=== PATIENT | male | born 1950 | race Caucasian/White ===

== ENCOUNTER 2022-07-05 17:34 | Inpatient (IN) | payer OTHER ==
[2022-07-05 18:34] VITALS: BMI 22.1
[2022-07-05] MEDS ORDERED: BISMUTH SUBSALICYLATE 524 MG/30 ML PO PRN (19:26)
[2022-07-05] MEDS ORDERED: DICYCLOMINE HCL 10 MG CAPSULE PO PRN (19:26)
[2022-07-05] MEDS ORDERED: POLYETHYLENE GLYCOL (HEALTHYLAX) 3350 17 GM PACKET PO PRN (19:26)
[2022-07-05] MEDS ORDERED: MAG HYDROX/AL HYDROX/SIMETH 30 ML UNIT-DOSE CUP PO PRN (19:26)
[2022-07-05] MEDS ORDERED: IBUPROFEN 400 MG TABLET (FP) PO PRN (19:26)
[2022-07-05] MEDS ORDERED: IBUPROFEN 600 MG TABLET (FP) PO PRN (19:26)
[2022-07-05] MEDS ORDERED: BENZOCAINE/MENTHOL (CHLORASEPTIC ) LOZENGE MM PRN (19:26)
[2022-07-05] MEDS ORDERED: BENZONATATE 200 MG CAPSULE PO PRN (19:26)
[2022-07-05] MEDS ORDERED: P-EPHED 60MG/TRIPROLIDI 2.5MG TABLET PO PRN (19:26)
[2022-07-05] MEDS ORDERED: ACETAMINOPHEN 325 MG TABLET (FP) PO PRN (19:26)
[2022-07-05] MEDS ORDERED: guaiFENesin 600 MG TABLET.ER (FP) PO PRN (19:26)
[2022-07-05] MEDS ORDERED: MELATONIN 5 MG TABLETS PO PRN (19:26)
[2022-07-05] MEDS ORDERED: ONDANSETRON *ODT* 4 MG TABLET SL PRN (19:26)
[2022-07-05] MEDS ORDERED: LOPERAMIDE HCL 2 MG CAPSULE PO PRN (19:26)
[2022-07-05] MEDS ORDERED: MAGNESIUM HYDROX 2400MG/30ML ORAL SUSPENSION 30 ML CUP PO PRN (19:26)
[2022-07-05] MEDS ORDERED: chlordiazePOXIDE HCL 25 MG CAPSULE PO PRN (19:28)
[2022-07-05] MEDS ORDERED: chlordiazePOXIDE HCL 25 MG CAPSULE PO ONE (19:28)
[2022-07-05] MEDS ORDERED: chlordiazePOXIDE HCL 25 MG CAPSULE ONE (19:43)
[2022-07-05] MEDS ORDERED: PATIENT'S OWN MEDICATION (NON-FORMULARY) (Topiramate [Topiramate] 50 MG Tablet) PO SCH (22:00)
[2022-07-05] MEDS: THIAMINE HCL 100 MG TABLET (FP) PO SCH (22:44)
[2022-07-06] MEDS: chlordiazePOXIDE HCL 25 MG CAPSULE PO SCH ×4 (00:11→18:52)
[2022-07-06] MEDS ORDERED: TOPIRAMATE 25 MG TABLET PO ONE (01:20)
[2022-07-06] MEDS ORDERED: FAMOTIDINE 20 MG TABLET PO SCH (10:00)
[2022-07-06] MEDS ORDERED: amLODIPine BESYLATE 5 MG TABLET (FP) PO SCH (10:00)
[2022-07-06] MEDS ORDERED: PRENATAL VITAMINS W/ FOLIC ACID TABLET (FP) PO SCH (10:00)
[2022-07-06 12:08] LABS: HEMATOCRIT 20.5 % (35.4-49); MCH 31.5 pg (25.7-33.7); MCHC 33.5 g/dl (32.0-35.9); MEAN CELL VOLUME 94.2 fl (80-96); MEAN PLT VOLUME 7.3 fl (7.5-11.1); PLATELET COUNT 37 10^3/uL (134-434); RBC 2.18 M/mm3 (4.00-5.60); RDW 16.2 % (11.9-15.9)
[2022-07-06 12:12] LABS: HEMOGLOBIN 6.9 GM/dL (11.7-16.9)
[2022-07-06 12:13] LABS: WHITE BLOOD COUNT 1.5 K/mm3 (4.0-10.0)
[2022-07-06 12:42] LABS: ALBUMIN 3.2 g/dl (3.4-5.0); BLOOD UREA NITROGEN 19.2 mg/dL (7-18); CALCIUM 8.7 mg/dL (8.5-10.1)
[2022-07-06 12:46] LABS: CREATININE 0.8 mg/dL (0.55-1.3)
[2022-07-06 12:48] LABS: BILIRUBIN,TOTAL 0.9 mg/dL (0.2-1); TOT PROT 6.2 g/dl (6.4-8.2)
[2022-07-06] MEDS: TOPIRAMATE 25 MG TABLET PO SCH ×2 (13:57→18:51)
[2022-07-06 15:22] VITALS: RESP 18
[2022-07-06 17:17] VITALS: BP 121/83; PULSE 108; TEMP 97.7
[2022-07-07] MEDS: TOPIRAMATE 25 MG TABLET PO SCH (00:27)
[2022-07-07] MEDS: THIAMINE HCL 100 MG TABLET (FP) PO SCH (00:29)
[2022-07-07] MEDS: chlordiazePOXIDE HCL 25 MG CAPSULE PO SCH (00:30)
[2022-07-07] MEDS ORDERED: chlordiazePOXIDE HCL 25 MG CAPSULE PO SCH (05:00)
[2022-07-08] MEDS ORDERED: chlordiazePOXIDE HCL 10 MG CAPSULE PO PRN
[2022-07-08] MEDS ORDERED: chlordiazePOXIDE HCL 10 MG CAPSULE PO SCH (05:00)
[2022-07-09] MEDS ORDERED: chlordiazePOXIDE HCL 10 MG CAPSULE PO SCH (05:00)
[2022-07-10] MEDS ORDERED: chlordiazePOXIDE HCL 10 MG CAPSULE PO ONE (05:00)
== END 2022-07-07 03:55 | disposition short-term general hospital (02) | DRG 897 ==
LOC: YASAS 17:34 → Y6N 21:01
PROVIDERS: ADMIT Allergy & Immunology; ATTEND Surgery
PROC: HZ2ZZZZ Detoxification Services for Substance Abuse Treatment (ICD-10-PCS; principal; 2022-07-05)
DX: F10.230 Alcohol dependence with withdrawal, uncomplicated (principal); D61.818 Other pancytopenia; K92.2 Gastrointestinal hemorrhage, unspecified; F10.280 Alcohol dependence with alcohol-induced anxiety disorder; F10.282 Alcohol dependence with alcohol-induced sleep disorder; I10 Essential (primary) hypertension; K21.9 Gastro-esophageal reflux disease without esophagitis; E78.5 Hyperlipidemia, unspecified; Z87.891 Personal history of nicotine dependence
CPT/HCPCS: 36415; 80053; 85027; 86780; C9803-CS; U0003; U0005

== ENCOUNTER 2022-07-06 17:04 | Inpatient (IN) | payer OTHER ==
[2022-07-06] MEDS ORDERED: PANTOPRAZOLE SODIUM 40 MG VIAL IVPUSH ONE (17:58)
[2022-07-06] MEDS ORDERED: LORazepam 2 MG/ML SDV VIAL IVPUSH ONE ×2 (18:02→19:10)
[2022-07-06] MEDS ORDERED: PANTOPRAZOLE SODIUM 40 MG VIAL ONE (18:13)
[2022-07-06] MEDS ORDERED: FOLIC ACID INJECTION - 1 MG, THIAMINE HCL 100 MG, MULTIVIT INJECTION ADULT 10 ML in SOD... IVPB ONE (18:42)
[2022-07-06 18:52] LABS: BASO % 1.3 % (0-2.0); EOS % 2.7 % (0-4.5); HEMATOCRIT 22.9 % (35.4-49); HEMOGLOBIN 7.5 GM/dL (11.7-16.9); LYMPH % 23.6 % (8-40); MCHC 32.8 g/dl (32.0-35.9); MEAN CELL VOLUME 94.4 fl (80-96); MEAN PLT VOLUME 7.1 fl (7.5-11.1); MONO % 10.5 % (3.8-10.2); NEUT % 61.9 % (42.8-82.8); PLATELET COUNT 44 10^3/uL (134-434); RBC 2.42 M/mm3 (4.00-5.60); WHITE BLOOD COUNT 2.2 K/mm3 (4.0-10.0)
[2022-07-06 18:59] LABS: INR 1.07 (0.83-1.09); PROTHROMBIN TIME (PATIENT) 12.4 SEC (9.7-13.0)
[2022-07-06 19:01] LABS: ACTIVATED PTT 28.5 SECONDS (25.2-36.5)
[2022-07-06 19:13] LABS: ALBUMIN 3.6 g/dl (3.4-5.0); BLOOD UREA NITROGEN 17.9 mg/dL (7-18); CALCIUM 9.5 mg/dL (8.5-10.1)
[2022-07-06 19:16] LABS: CREATININE 0.9 mg/dL (0.55-1.3)
[2022-07-06 19:17] LABS: BILIRUBIN,TOTAL 0.8 mg/dL (0.2-1); TOT PROT 7.3 g/dl (6.4-8.2)
[2022-07-06] MEDS ORDERED: diazePAM CARPU-JECT 10 MG/2 ML DISP.SYRIN IVPUSH ONE ×2 (20:40→21:13)
[2022-07-06] MEDS ORDERED: diazePAM CARPU-JECT 10 MG/2 ML DISP.SYRIN ONE ×2 (20:40→21:18)
[2022-07-06] MEDS ORDERED: LACTATED RINGERS SOLUTION 1,000 ML/1,000 ML INFUS.BAG IV SCH (23:45)
[2022-07-07] MEDS ORDERED: diazePAM CARPU-JECT 10 MG/2 ML DISP.SYRIN IVPUSH PRN ×2 (00:03→14:08)
[2022-07-07] MEDS: LACTATED RINGERS SOLUTION 1,000 ML/1,000 ML INFUS.BAG IV SCH (00:46)
[2022-07-07 03:17] LABS: HEMATOCRIT 16.5 % (35.4-49); MCH 30.7 pg (25.7-33.7); MCHC 32.4 g/dl (32.0-35.9); MEAN CELL VOLUME 94.6 fl (80-96); MEAN PLT VOLUME 6.5 fl (7.5-11.1); PLATELET COUNT 39 10^3/uL (134-434); RBC 1.74 M/mm3 (4.00-5.60); RDW 16.6 % (11.9-15.9)
[2022-07-07 03:26] LABS: HEMOGLOBIN 5.4 GM/dL (11.7-16.9); WHITE BLOOD COUNT 1.6 K/mm3 (4.0-10.0)
[2022-07-07 04:13] LABS: ANISOCYTOSIS 2+; MACROCYTOSIS 0
[2022-07-07] MEDS: THIAMINE HCL 200 MG/2 ML VIAL IVPB SCH ×3 (06:52→21:47)
[2022-07-07] MEDS ORDERED: diazePAM CARPU-JECT 10 MG/2 ML DISP.SYRIN IVPUSH ONE ×4 (08:59→14:04)
[2022-07-07] MEDS: MUPIROCIN 2% TOPICAL OINTMENT FOR DECOLONIZATION NS SCH ×2 (09:40→21:46)
[2022-07-07] MEDS ORDERED: FOLIC ACID 5 MG/1 ML IVPB SCH (10:00)
[2022-07-07] MEDS ORDERED: PANTOPRAZOLE SODIUM 40 MG VIAL IVPUSH SCH (10:00)
[2022-07-07] MEDS ORDERED: FOLIC ACID 1 MG TABLET (FP) PO SCH (10:00)
[2022-07-07] MEDS: CEFTRIAXONE 1 GM in DEXTROSE 5%-WATER - 50 ML IVPB SCH (12:54)
[2022-07-07] MEDS: OCTREOTIDE ACETATE 200 MCG, OCTREOTIDE ACETATE 1,000 MCG in DEXTROSE 5%-WATER - 496 ML IVPB SCH (13:27)
[2022-07-07] MEDS: PANTOPRAZOLE SODIUM 160 MG in SODIUM CHLORIDE 290 ML IVPB SCH (13:28)
[2022-07-07] MEDS ORDERED: OCTREOTIDE ACETATE 50 MCG/1 ML - 1 ML VIAL IVPUSH ONE (14:05)
[2022-07-07] MEDS: LORazepam 2 MG/ML SDV VIAL IVPUSH PRN ×2 (14:19→17:16)
[2022-07-07 17:03] LABS: BASO % 0.8 % (0-2.0); EOS % 3.2 % (0-4.5); HEMATOCRIT 33.9 % (35.4-49); HEMOGLOBIN 11.3 GM/dL (11.7-16.9); LYMPH % 12.8 % (8-40); MCH 29.3 pg (25.7-33.7); MCHC 33.4 g/dl (32.0-35.9); MEAN CELL VOLUME 87.8 fl (80-96); MEAN PLT VOLUME 6.5 fl (7.5-11.1); MONO % 12.5 % (3.8-10.2); NEUT % 70.7 % (42.8-82.8); PLATELET COUNT 63 10^3/uL (134-434); RBC 3.86 M/mm3 (4.00-5.60); RDW 18.1 % (11.9-15.9); WHITE BLOOD COUNT 3.8 K/mm3 (4.0-10.0)
[2022-07-07 17:13] LABS: INR 1.1 (0.83-1.09); PROTHROMBIN TIME (PATIENT) 12.8 SEC (9.7-13.0)
[2022-07-07 17:16] LABS: ACTIVATED PTT 27.1 SECONDS (25.2-36.5)
[2022-07-07 17:23] LABS: ALBUMIN 3.3 g/dl (3.4-5.0); BLOOD UREA NITROGEN 9.6 mg/dL (7-18); CALCIUM 8.5 mg/dL (8.5-10.1)
[2022-07-07 17:24] LABS: MAGNESIUM 1.6 mg/dL (1.8-2.4)
[2022-07-07 17:25] LABS: PHOSPHOROUS 3.9 mg/dL (2.5-4.9)
[2022-07-07 17:27] LABS: CREATININE 0.8 mg/dL (0.55-1.3)
[2022-07-07 17:29] LABS: BILIRUBIN,TOTAL 1.4 mg/dL (0.2-1); TOT PROT 6.7 g/dl (6.4-8.2)
[2022-07-07] MEDS ORDERED: MAGNESIUM 2GM/50ML STERILE WATER IVPB IVPB ONE (18:18)
[2022-07-07] MEDS: KCL 10 MEQ IVPB 10 MEQ/100 ML INFUS.BAG IVPB SCH ×2 (20:10→21:06)
[2022-07-07 20:53] LABS: BASO % 0.7 % (0-2.0); EOS % 3.9 % (0-4.5); HEMATOCRIT 33.5 % (35.4-49); HEMOGLOBIN 11.3 GM/dL (11.7-16.9); LYMPH % 14.9 % (8-40); MCH 29.6 pg (25.7-33.7); MCHC 33.9 g/dl (32.0-35.9); MEAN CELL VOLUME 87.3 fl (80-96); MEAN PLT VOLUME 6.7 fl (7.5-11.1); MONO % 10.6 % (3.8-10.2); NEUT % 69.9 % (42.8-82.8); PLATELET COUNT 73 10^3/uL (134-434); RBC 3.84 M/mm3 (4.00-5.60); RDW 18.1 % (11.9-15.9); WHITE BLOOD COUNT 4.2 K/mm3 (4.0-10.0)
[2022-07-07] MEDS: CHLORHEXIDINE GLUCONATE 4% CLEANSER FOR DECOLONIZATION TP SCH (21:47)
[2022-07-08] MEDS: LACTATED RINGERS SOLUTION 1,000 ML/1,000 ML INFUS.BAG IV SCH (00:30)
[2022-07-08] MEDS: LORazepam 2 MG/ML SDV VIAL IVPUSH PRN ×3 (05:57→21:40)
[2022-07-08] MEDS: THIAMINE HCL 200 MG/2 ML VIAL IVPB SCH ×3 (05:57→21:40)
[2022-07-08 07:42] LABS: BASO % 0.9 % (0-2.0); EOS % 5.1 % (0-4.5); HEMATOCRIT 34.1 % (35.4-49); HEMOGLOBIN 11.5 GM/dL (11.7-16.9); LYMPH % 14.1 % (8-40); MCH 29.8 pg (25.7-33.7); MCHC 33.9 g/dl (32.0-35.9); MEAN CELL VOLUME 87.9 fl (80-96); MEAN PLT VOLUME 6.7 fl (7.5-11.1); MONO % 9.4 % (3.8-10.2); NEUT % 70.5 % (42.8-82.8); PLATELET COUNT 74 10^3/uL (134-434); RBC 3.87 M/mm3 (4.00-5.60); RDW 18.2 % (11.9-15.9)
[2022-07-08 07:53] LABS: INR 1.06 (0.83-1.09); PROTHROMBIN TIME (PATIENT) 12.3 SEC (9.7-13.0)
[2022-07-08 07:56] LABS: ACTIVATED PTT 28.7 SECONDS (25.2-36.5)
[2022-07-08 08:02] LABS: ALBUMIN 3.4 g/dl (3.4-5.0); BLOOD UREA NITROGEN 9.3 mg/dL (7-18); CALCIUM 8.9 mg/dL (8.5-10.1); MAGNESIUM 2.4 mg/dL (1.8-2.4)
[2022-07-08 08:06] LABS: CREATININE 0.8 mg/dL (0.55-1.3); PHOSPHOROUS 3.9 mg/dL (2.5-4.9)
[2022-07-08 08:07] LABS: BILIRUBIN,TOTAL 1.6 mg/dL (0.2-1)
[2022-07-08] MEDS ORDERED: MIDAZOLAM HCL 2 MG/2 ML SINGLE DOSE VIAL ONE (08:50)
[2022-07-08] MEDS: OCTREOTIDE ACETATE 200 MCG, OCTREOTIDE ACETATE 1,000 MCG in DEXTROSE 5%-WATER - 496 ML IVPB SCH (09:42)
[2022-07-08] MEDS: MUPIROCIN 2% TOPICAL OINTMENT FOR DECOLONIZATION NS SCH ×2 (09:42→21:40)
[2022-07-08] MEDS: PANTOPRAZOLE SODIUM 160 MG in SODIUM CHLORIDE 290 ML IVPB SCH (09:42)
[2022-07-08] MEDS: SODIUM CHLORIDE IVPB SCH (10:26)
[2022-07-08] MEDS: FOLIC ACID IVPB SCH (10:26)
[2022-07-08] MEDS: CEFTRIAXONE 1 GM in DEXTROSE 5%-WATER - 50 ML IVPB SCH (11:09)
[2022-07-08 12:48] LABS: BASO % 0.8 % (0-2.0); EOS % 5.2 % (0-4.5); HEMATOCRIT 34.5 % (35.4-49); HEMOGLOBIN 11.5 GM/dL (11.7-16.9); LYMPH % 14.4 % (8-40); MCH 29.4 pg (25.7-33.7); MCHC 33.3 g/dl (32.0-35.9); MEAN CELL VOLUME 88.2 fl (80-96); MEAN PLT VOLUME 6.5 fl (7.5-11.1); NEUT % 68.6 % (42.8-82.8); PLATELET COUNT 80 10^3/uL (134-434); RBC 3.91 M/mm3 (4.00-5.60); RDW 18.1 % (11.9-15.9)
[2022-07-08] MEDS: PANTOPRAZOLE 40 MG TABLET PO SCH (21:40)
[2022-07-08] MEDS: CHLORHEXIDINE GLUCONATE 4% CLEANSER FOR DECOLONIZATION TP SCH (21:40)
[2022-07-09] MEDS: LORazepam 2 MG/ML SDV VIAL IVPUSH PRN ×2 (06:44→09:24)
[2022-07-09] MEDS: THIAMINE HCL 200 MG/2 ML VIAL IVPB SCH ×3 (06:45→21:04)
[2022-07-09] MEDS: PANTOPRAZOLE 40 MG TABLET PO SCH ×2 (09:23→21:03)
[2022-07-09] MEDS: MUPIROCIN 2% TOPICAL OINTMENT FOR DECOLONIZATION NS SCH (09:23)
[2022-07-09] MEDS ORDERED: PANTOPRAZOLE 40 MG TABLET PO SCH (10:00)
[2022-07-09] MEDS: SODIUM CHLORIDE IVPB SCH (10:30)
[2022-07-09] MEDS: FOLIC ACID IVPB SCH (10:30)
[2022-07-09] MEDS ORDERED: LORazepam 2 MG/ML SDV VIAL IVPUSH PRN (11:53)
[2022-07-09] MEDS ORDERED: diazePAM CARPU-JECT 10 MG/2 ML DISP.SYRIN IVPUSH PRN (11:53)
[2022-07-09 15:32] LABS: HEMATOCRIT 30.3 % (35.4-49); HEMOGLOBIN 10.7 GM/dL (11.7-16.9); MCH 30.8 pg (25.7-33.7); MCHC 35.1 g/dl (32.0-35.9); MEAN CELL VOLUME 87.6 fl (80-96); MEAN PLT VOLUME 6.7 fl (7.5-11.1); PLATELET COUNT 87 10^3/uL (134-434); RBC 3.46 M/mm3 (4.00-5.60); RDW 17.5 % (11.9-15.9); WHITE BLOOD COUNT 4.2 K/mm3 (4.0-10.0)
[2022-07-09 15:55] LABS: CALCIUM 8.3 mg/dL (8.5-10.1)
[2022-07-09 15:56] LABS: ALBUMIN 2.9 g/dl (3.4-5.0); BLOOD UREA NITROGEN 20.9 mg/dL (7-18)
[2022-07-09 15:59] LABS: CREATININE 0.9 mg/dL (0.55-1.3); PHOSPHOROUS 3.3 mg/dL (2.5-4.9)
[2022-07-09 16:01] LABS: BILIRUBIN,TOTAL 0.7 mg/dL (0.2-1)
[2022-07-09] MEDS: amLODIPine BESYLATE 5 MG TABLET (FP) PO SCH (20:55)
[2022-07-09] MEDS ORDERED: CHLORHEXIDINE GLUCONATE 4% CLEANSER FOR DECOLONIZATION TP SCH (22:00)
[2022-07-09] MEDS ORDERED: MUPIROCIN 2% TOPICAL OINTMENT FOR DECOLONIZATION NS SCH (22:00)
[2022-07-10 07:38] LABS: HEMATOCRIT 33.3 % (35.4-49); HEMOGLOBIN 11.3 GM/dL (11.7-16.9); MCH 30.1 pg (25.7-33.7); MCHC 33.8 g/dl (32.0-35.9); MEAN CELL VOLUME 88.9 fl (80-96); MEAN PLT VOLUME 6.8 fl (7.5-11.1); PLATELET COUNT 93 10^3/uL (134-434); RBC 3.75 M/mm3 (4.00-5.60); RDW 17.7 % (11.9-15.9); WHITE BLOOD COUNT 4.2 K/mm3 (4.0-10.0)
[2022-07-10 07:44] LABS: BLOOD UREA NITROGEN 18.7 mg/dL (7-18); CALCIUM 8.4 mg/dL (8.5-10.1)
[2022-07-10 07:48] LABS: CREATININE 0.8 mg/dL (0.55-1.3); PHOSPHOROUS 3.4 mg/dL (2.5-4.9)
[2022-07-10 07:50] LABS: BILIRUBIN,TOTAL 0.9 mg/dL (0.2-1); TOT PROT 6.4 g/dl (6.4-8.2)
[2022-07-10] MEDS ORDERED: SODIUM CHLORIDE IVPB SCH (10:00)
[2022-07-10] MEDS ORDERED: FOLIC ACID IVPB SCH (10:00)
[2022-07-10] MEDS: PANTOPRAZOLE 40 MG TABLET PO SCH ×2 (10:25→22:10)
[2022-07-10] MEDS: amLODIPine BESYLATE 5 MG TABLET (FP) PO SCH (10:25)
[2022-07-10] MEDS: FOLIC ACID 1 MG TABLET (FP) PO SCH (11:02)
[2022-07-11] MEDS: amLODIPine BESYLATE 5 MG TABLET (FP) PO SCH (09:33)
[2022-07-11] MEDS: PANTOPRAZOLE 40 MG TABLET PO SCH ×2 (09:33→21:45)
[2022-07-11] MEDS: FOLIC ACID 1 MG TABLET (FP) PO SCH (09:33)
[2022-07-11 11:08] LABS: BASO % 1.1 % (0-2.0); EOS % 5.5 % (0-4.5); HEMATOCRIT 34.5 % (35.4-49); HEMOGLOBIN 11.8 GM/dL (11.7-16.9); LYMPH % 18.6 % (8-40); MCH 30.6 pg (25.7-33.7); MCHC 34.3 g/dl (32.0-35.9); MEAN CELL VOLUME 89.4 fl (80-96); MEAN PLT VOLUME 7.6 fl (7.5-11.1); MONO % 19.2 % (3.8-10.2); NEUT % 55.6 % (42.8-82.8); PLATELET COUNT 101 10^3/uL (134-434); RBC 3.86 M/mm3 (4.00-5.60); RDW 17.7 % (11.9-15.9); WHITE BLOOD COUNT 3.9 K/mm3 (4.0-10.0)
[2022-07-11 11:30] LABS: ALBUMIN 3.3 g/dl (3.4-5.0); BLOOD UREA NITROGEN 22.6 mg/dL (7-18); CALCIUM 8.8 mg/dL (8.5-10.1); MAGNESIUM 2.1 mg/dL (1.8-2.4)
[2022-07-11 11:35] LABS: BILIRUBIN,TOTAL 0.8 mg/dL (0.2-1); TOT PROT 6.8 g/dl (6.4-8.2)
[2022-07-11] MEDS: THIAMINE HCL 100 MG TABLET (FP) PO SCH (14:41)
[2022-07-11 15:45] VITALS: RESP 18
[2022-07-11] MEDS: LORazepam 1 MG TABLET PO PRN (20:39)
[2022-07-12 09:10] LABS: BASO % 1.7 % (0-2.0); EOS % 5.4 % (0-4.5); HEMATOCRIT 36.6 % (35.4-49); HEMOGLOBIN 12.5 GM/dL (11.7-16.9); LYMPH % 23.5 % (8-40); MCH 30.5 pg (25.7-33.7); MEAN CELL VOLUME 89.6 fl (80-96); MEAN PLT VOLUME 7.8 fl (7.5-11.1); MONO % 16.5 % (3.8-10.2); NEUT % 52.9 % (42.8-82.8); PLATELET COUNT 156 10^3/uL (134-434); RBC 4.09 M/mm3 (4.00-5.60); RDW 17.3 % (11.9-15.9); WHITE BLOOD COUNT 5.1 K/mm3 (4.0-10.0)
[2022-07-12 09:34] LABS: ALBUMIN 3.6 g/dl (3.4-5.0); BLOOD UREA NITROGEN 23.9 mg/dL (7-18)
[2022-07-12 09:39] LABS: TOT PROT 7.7 g/dl (6.4-8.2)
[2022-07-12] MEDS: THIAMINE HCL 100 MG TABLET (FP) PO SCH (10:27)
[2022-07-12] MEDS: PANTOPRAZOLE 40 MG TABLET PO SCH ×2 (10:27→21:30)
[2022-07-12] MEDS: FOLIC ACID 1 MG TABLET (FP) PO SCH (10:27)
[2022-07-12] MEDS: amLODIPine BESYLATE 5 MG TABLET (FP) PO SCH (10:27)
[2022-07-12 14:54] VITALS: BMI 23.1
[2022-07-13 09:21] LABS: BASO % 1.1 % (0-2.0); EOS % 5.5 % (0-4.5); HEMATOCRIT 33.3 % (35.4-49); HEMOGLOBIN 11.2 GM/dL (11.7-16.9); MCH 29.9 pg (25.7-33.7); MCHC 33.7 g/dl (32.0-35.9); MEAN CELL VOLUME 88.8 fl (80-96); MEAN PLT VOLUME 8.3 fl (7.5-11.1); MONO % 19.6 % (3.8-10.2); NEUT % 50.8 % (42.8-82.8); PLATELET COUNT 126 10^3/uL (134-434); RBC 3.75 M/mm3 (4.00-5.60); RDW 17.5 % (11.9-15.9); WHITE BLOOD COUNT 3.6 K/mm3 (4.0-10.0)
[2022-07-13 09:58] LABS: CALCIUM 8.7 mg/dL (8.5-10.1)
[2022-07-13 09:59] LABS: ALBUMIN 3.3 g/dl (3.4-5.0); BLOOD UREA NITROGEN 22.2 mg/dL (7-18)
[2022-07-13 10:01] LABS: BILIRUBIN,TOTAL 0.8 mg/dL (0.2-1)
[2022-07-13 10:02] LABS: CREATININE 0.9 mg/dL (0.55-1.3)
[2022-07-13 10:05] LABS: TOT PROT 6.5 g/dl (6.4-8.2)
[2022-07-13] MEDS: PANTOPRAZOLE 40 MG TABLET PO SCH ×2 (10:18→22:13)
[2022-07-13] MEDS: FOLIC ACID 1 MG TABLET (FP) PO SCH (10:18)
[2022-07-13] MEDS: THIAMINE HCL 100 MG TABLET (FP) PO SCH (10:18)
[2022-07-13] MEDS: amLODIPine BESYLATE 5 MG TABLET (FP) PO SCH (10:18)
[2022-07-14] MEDS: THIAMINE HCL 100 MG TABLET (FP) PO SCH (10:49)
[2022-07-14] MEDS: PANTOPRAZOLE 40 MG TABLET PO SCH (10:49)
[2022-07-14] MEDS: FOLIC ACID 1 MG TABLET (FP) PO SCH (10:49)
[2022-07-14] MEDS: amLODIPine BESYLATE 5 MG TABLET (FP) PO SCH (10:49)
[2022-07-14] MEDS: LORazepam 1 MG TABLET PO PRN (11:24)
[2022-07-14 15:23] VITALS: BP 125/74; PULSE 102; TEMP 98.6
== END 2022-07-14 18:09 | disposition home or self-care (01) | DRG 378 ==
LOC: JER 17:04 → JERBED 21:20 → JICU 23:02 → J8W 07-09 11:38 → J5S 07-10 17:02
PROVIDERS: ADMIT Internal Medicine Pulmonary Disease
PROC: HZ2ZZZZ Detoxification Services for Substance Abuse Treatment (ICD-10-PCS; principal; 2022-07-06)
PROC: 30233R1 Transfusion of Nonautologous Platelets into Peripheral Vein, Percutaneous Approach (ICD-10-PCS; 2022-07-06)
PROC: 30233N1 Transfusion of Nonautologous Red Blood Cells into Peripheral Vein, Percutaneous Approach (ICD-10-PCS; 2022-07-06)
PROC: 0DB68ZX Excision of Stomach, Via Natural or Artificial Opening Endoscopic, Diagnostic (ICD-10-PCS; 2022-07-08)
DX: K92.2 Gastrointestinal hemorrhage, unspecified (principal); D61.818 Other pancytopenia; F10.130 Alcohol abuse with withdrawal, uncomplicated; D62 Acute posthemorrhagic anemia; I10 Essential (primary) hypertension; E78.5 Hyperlipidemia, unspecified; K21.9 Gastro-esophageal reflux disease without esophagitis; K76.0 Fatty (change of) liver, not elsewhere classified; K64.4 Residual hemorrhoidal skin tags; D69.6 Thrombocytopenia, unspecified; R53.1 Weakness; K20.80 Other esophagitis without bleeding; K29.60 Other gastritis without bleeding; R26.89 Other abnormalities of gait and mobility; F39 Unspecified mood [affective] disorder
CPT/HCPCS: 0241U-QW; 36415; 36430; 74177-TC; 80053; 82140; 82272; 83690; 83735; 84100; 84484; 85025; 85027; 85384; 85610; 85730; 86704; 86708; 86803; 86850; 86900; 86901; 86922; 87340; 87517; 88305-TC; 93005; 93010; 97116-GP; 97161-GP; 99285-25; C9803-CS; P9034; P9058; Q9967; U0003; U0005